=== PATIENT | male | born 1955 | race Caucasian/White ===

== ENCOUNTER 2020-11-28 11:17 | Emergency (ER) | payer BC, MEDICARE ==
[~2020-11-28] VITALS: Ht 177.8 cm; Wt 240.0 kg
[2020-11-28] MEDS ORDERED: cloNIDine 0.1 MG (CATAPRES) TAB PO ONE (12:15)
[2020-11-28] MEDS ORDERED: LISI20TA26 PO (12:16)
--- NOTE | 2020-11-28 12:16 | ED General ---
General Stated Complaint: HIGH BP Source of Information: Patient Exam Limitations: No Limitations History of Present Illness Date Seen by Provider: Nov 28, 2020 Time Seen by Provider: 12:13 Initial Comments To ER by private vehicle from Dr. Lozano's office where he presented for routine eye exam and was found incidentally to have hypertension at 218/108. He denies chest pain shortness of breath vision changes headache or any other concerns. States that he feels fine. He was formerly on antihypertensives but his a year and a half ago and the PA that he was seeing at the time quit so he just quit going to the doctor's office as he was tied up caring for his . He has let it lapse since then. Timing/Duration: 1 Hour, 1-2 Days Severity: Mild (Asymptomatic) Associated Systoms: Denies Symptoms Allergies and Home Medications Allergies Coded Allergies: No Known Drug Allergies (Unverified , 11/28/20) Patient Home Medication List Home Medication List Reviewed: Yes Review of Systems Review of Systems Constitutional: see HPI EENTM: see HPI Respiratory: no symptoms reported Cardiovascular: no symptoms reported Genitourinary: no symptoms reported Musculoskeletal: no symptoms reported Skin: no symptoms reported Psychiatric/Neurological: No Symptoms Reported Hematologic/Lymphatic: No Symptoms Reported Immunological/Allergic: no symptoms reported Physical Exam Vital Signs Capillary Refill : Height, Weight, BMI Height: '" Weight: lbs. oz. kg; BMI Method: General Appearance: No Apparent Distress, WD/WN, Other (He is asymptomatic alert and oriented well-appearing no distress 208/100. Heart rate 90 sinus) Eyes: Bilateral Eye Normal Inspection, Bilateral Eye PERRL HEENT: PERRL/EOMI, TMs Normal Neck: Full Range of Motion, Normal Inspection Respiratory: No Accessory Muscle Use, No Respiratory Distress Cardiovascular: Regular Rate, Rhythm, Normal Peripheral Pulses Gastrointestinal: Normal Bowel Sounds, Non Tender, Soft Extremity: Normal Capillary Refill, Normal Inspection Neurologic/Psychiatric: Alert, Oriented x3 Skin: Normal Color, Warm/Dry Progress/Results/Core Measures Suspected Sepsis SIRS Temperature: Pulse: Respiratory Rate: Blood Pressure / Mean: Results/Orders My Orders Orders - SANDRO RICHMOND APRN Cbc With Automated Diff (11/28/20 12:10) Basic Metabolic Panel (11/28/20 12:10) Clonidine Tablet (Catapres Tablet) (11/28/20 12:15) Vital Signs/I&O Capillary Refill : Departure Impression Primary Impression: Asymptomatic hypertension Disposition: HOME, SELF-CARE Condition: Stable Departure-Patient Inst. Decision time for Depature: 12:15 Patient Instructions: High Blood Pressure in Adults Add. Discharge Instructions: 1. Return to Er for any concerns 2. Follow up with your doctor next week. Scripts Lisinopril (Lisinopril) 20 Mg Tablet 20 MG PO DAILY, #30 TAB Prov: SANDRO RICHMOND APRN 11/28/20 SANDRO RICHMOND APRN Nov 28, 2020 12:16
[2020-11-28 12:32] LABS: BASOPHILS # (AUTO) 0.1 10^3/uL (0.0-0.1); BASOPHILS % (AUTO) 1 % (0-10); EOSINOPHILS # (AUTO) 0.1 10^3/uL (0.0-0.3); EOSINOPHILS % (AUTO) 1 % (0-10); HEMATOCRIT 47 % (40-54); LYMPHOCYTES # (AUTO) 1.9 10^3/uL (1.0-4.0); LYMPHOCYTES % (AUTO) 32 % (12-44); MEAN CORPUSCULAR HEMOGLOBIN 31 pg (25-34); MEAN CORPUSCULAR HGB CONC 36 g/dL (32-36); MEAN CORPUSCULAR VOLUME 86 fL (80-99); MEAN PLATELET VOLUME 10.5 fL (9.0-12.2); MONOCYTES # (AUTO) 0.3 10^3/uL (0.0-1.0); MONOCYTES % (AUTO) 6 % (0-12); NEUTROPHILS # (AUTO) 3.7 10^3/uL (1.8-7.8); NEUTROPHILS % (AUTO) 60 % (42-75); PLATELET COUNT 201 10^3/uL (130-400); WHITE BLOOD COUNT 6.1 10^3/uL (4.3-11.0)
[2020-11-28 12:39] LABS: POTASSIUM 4.2 MMOL/L (3.6-5.0)
[2020-11-28 12:40] LABS: CALCIUM 9.7 MG/DL (8.5-10.1)
[2020-11-28 12:44] LABS: CREATININE SERUM 1.01 MG/DL (0.60-1.30)
[2020-11-28 12:58] VITALS: BP 178/106
== END 2020-11-28 12:58 | disposition home or self-care (01) ==
LOC: ER 11:20
DX: I10 Essential (primary) hypertension (principal)
CPT/HCPCS: 36415; 80048; 85025